=== PATIENT | male | born 1960 | race Caucasian/White ===

== ENCOUNTER 2019-09-12 07:39 | Inpatient (IN) | payer BC, OTHER ==
[~2019-09-12] VITALS: Ht 177.8 cm; Wt 91.2 kg
[2019-09-12] MEDS ORDERED: ONDANSETRON HCL/PF 4 MG/2 ML VIAL ONE (08:00)
[2019-09-12] MEDS ORDERED: MORPHINE SULFATE INJ 4 MG/ML DISP.SYRIN ONE (08:00)
[2019-09-12] MEDS ORDERED: IV NS 0.9% 1,000 ML BAG IV ONE (08:00)
[2019-09-12] MEDS ORDERED: MORPHINE SULFATE INJ 2 MG/ML DISP.SYRIN IV ONE (08:00)
[2019-09-12] MEDS ORDERED: ONDANSETRON HCL/PF 4 MG/2 ML VIAL IVP ONE (08:00)
--- NOTE | 2019-09-12 08:16 | NUR ---
Patient alert, awake, oriented x4, complaining of abdominal pain, nausea, no vomiting, heplock obtained and blood sent to lab. Patient made aware of plan of care.
[2019-09-12 08:19] LABS: EOSINOPHILS % (AUTO) 2.3 % (0.0-6.0); HEMATOCRIT 40 % (39-51); HEMOGLOBIN 13.8 g/dL (13.5-17.5); LYMPHOCYTES # (AUTO) 0.3 /CMM (0.8-4.8); LYMPHOCYTES % (AUTO) 3.9 % (20.0-44.0); MEAN CORPUSCULAR HGB CONC 34 g/dl (31.0-36.0); MEAN CORPUSCULAR VOLUME 86 fL (80-96); MONOCYTES # (AUTO) 0.3 /CMM (0.1-1.30); MONOCYTES % (AUTO) 4.3 % (2.0-12.0); NEUTROPHILS # (AUTO) 6.5 /CMM (1.8-8.9); NEUTROPHILS % (AUTO) 89.5 % (43.0-81.0); PLATELET COUNT (AUTO) 186 /CMM (150-450); RED BLOOD CELL COUNT(AUTO) 4.72 MIL/uL (4.5-6.0); WHITE BLOOD COUNT (AUTO) 7.3 K/uL (4.3-11.0)
[2019-09-12 08:24] LABS: CALCIUM, SERUM 8.9 mg/dL (8.5-10.1); CREATININE 1.6 mg/dL (0.6-1.3); POTASSIUM 3.3 mmol/L (3.5-5.1)
[2019-09-12 08:29] LABS: ALBUMIN 2.9 g/dL (3.4-5.0); BILIRUBIN,DIRECT 1.8 mg/dL (0.0-0.2); TOTAL PROTEIN, SERUM 6.6 g/dL (6.4-8.2)
[2019-09-12] MEDS ORDERED: IOHEXOL-300 100 ML VIAL IV ONE (08:38)
[2019-09-12] MEDS ORDERED: CT SWABBABLE VALVE TRANS SET 1 EA INFUS.SET MC ONE (08:38)
[2019-09-12] MEDS ORDERED: IV NS 0.9% 250 ML IV ONE (08:40)
[2019-09-12] MEDS ORDERED: FLAGYL/NS RTU 500 MG/100 ML PIGGYBACK IV ONE (09:00)
[2019-09-12] MEDS: CIPROFLOXACIN IV RTU 400 MG in PREMIX 1 EA IV SCH ×2 (09:00→10:27)
--- NOTE | 2019-09-12 09:07 | NUR ---
CALLED NURSING SUP FOR M/S BED.
[2019-09-12] MEDS ORDERED: METRONIDAZOLE 500MG/ NS 100ML 100 ML IV ONE (09:10)
[2019-09-12] MEDS ORDERED: CIPROFLOXACIN IV RTU 200 ML IV ONE (09:10)
--- NOTE | 2019-09-12 09:19 | NUR ---
PAGED [facility].
--- NOTE | 2019-09-12 09:24 | NUR ---
CALLED DR. POLO (SURGERY ON-CALL), TRANSFERRED CALL TO DR. VEGA.
--- NOTE | 2019-09-12 09:29 | NUR ---
Patient awake alert signed consent for surgery Laparoscopic appendectomy possible open per Dr. Fields done patients signed
--- NOTE | 2019-09-12 10:02 | NUR ---
NURSING SUP GAVE M/S BED 119-1.
--- NOTE | 2019-09-12 10:25 | NUR ---
emg technician @ bedside for lab drw type and screen
--- NOTE | 2019-09-12 10:25 | NUR ---
Per CN Gener OR no time avail @ this time will follow up /,ok to give report to 119-1 RN spoke to Armando made aware plan
[2019-09-12] MEDS ORDERED: POTASSIUM CHLORIDE 10 MEQ/50 ML PREMIXED IVPB FOR PERIPHERAL LINE IV ONE ×2 (10:30→13:00)
[2019-09-12] MEDS ORDERED: HYDROMORPHONE INJ 0.5 MG/0.5 ML SYRINGE IV PRN (10:30)
[2019-09-12] MEDS ORDERED: Potassium Chloride 20 MEQ in IV D5/ 0.9% NACL 1,000 ML IV PRN (10:30)
[2019-09-12] MEDS ORDERED: ACETAMINOPHEN 325 MG TABLET PO PRN (10:30)
[2019-09-12] MEDS ORDERED: ONDANSETRON HCL/PF 4 MG/2 ML VIAL IV PRN (10:30)
[2019-09-12] MEDS ORDERED: HYDROCODONE/APAP 5/325MG 1 EACH TABLET PO PRN (10:30)
--- NOTE | 2019-09-12 11:18 | NUR ---
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 PATIENT WAS ABLE TO AMBULATE FROM GURNEY TO BED. C/O PAIN TO ABDOMEN, BUT TOLERABLE. AT BEDSIDE. CALL LIGHT WITHIN REACH. PT AWARE IS NPO. IV RT AC 20 GUAGE. A/O X 4, ON ROOM AIR, NO C/O SOB. WAITING FOR SURGERY FROM OR.
[2019-09-12] MEDS ORDERED: HYDROMORPHONE 1 MG/1 ML DISP.SYRIN IV PRN (11:30)
[2019-09-12] MEDS ORDERED: Potassium Chloride 10 MEQ in IV D5W 50 ML IV ONE (11:30)
[2019-09-12 12:00] VITALS: BP 134/79
[2019-09-12] MEDS ORDERED: PIPERACILLIN /TAZOBACTAM 3.375 G in IV D5W 50 ML IV ONE (12:00)
--- NOTE | 2019-09-12 12:00 | NUR ---
RN NOTE CALLED OR, PATIENT'S SX IS SCHEDULED AT 1700. ALL CONSENT FORMS SIGNED BY THE PATIENT
[2019-09-12] MEDS ORDERED: POTASSIUM CL. PREMIX PERIPHER. 50 ML IV SCH (13:04)
[2019-09-12] MEDS ORDERED: Potassium Chloride 10 MEQ in IV D5W 50 ML IV SCH (13:30)
[2019-09-12] MEDS ORDERED: BUPIVACAINE 0.5 % PF 150 MG/30 ML VIAL ONE (15:08)
[2019-09-12 16:00] VITALS: BP_SYST 139; BP_DIAS 71; BP_DIAS 79
[2019-09-12 16:02] LABS: APPEARANCE,URINE CLEAR (CLEAR); BILIRUBIN,URINE SMALL (NEGATIVE); BLOOD, URINE TRACE-INTA Ery/uL (NEGATIVE); COLOR,URINE AMBER (YELLOW); KETONES,URINE NEGATIVE (NEGATIVE); LEUKOCYTE ESTERASE ,URINE NEGATIVE (NEGATIVE); NITRITE, URINE NEGATIVE (NEGATIVE); PH,URINE 6.5 (5.0-8.0); PROTEIN,URINE TRACE mg/dl (NEGATIVE); UGLUCOSE NEGATIVE (NEGATIVE)
[2019-09-12 16:29] LABS: WBC,URINE 0-2 /HPF (0-3)
[2019-09-12 16:30] LABS: BACTERIA,URINE None seen /HPF (None Seen); SQUAMOUS EPITHELIAL CELL,UR Rare /HPF (None Seen); URINE AMORPHOUS URATE Few /HPF (None Seen)
--- NOTE | 2019-09-12 16:32 | NUR ---
RN NOTE OR NURSES AT BEDSIDE
[2019-09-12] MEDS ORDERED: HYDROMORPHONE INJ 2 MG/ML DISP.SYRIN ONE (16:46)
[2019-09-12] MEDS ORDERED: ROCURONIUM BROMIDE 50 MG/5 ML ONE (16:46)
[2019-09-12] MEDS ORDERED: MIDAZOLAM HCL 2 MG/2ML VIAL ONE (16:46)
[2019-09-12] MEDS ORDERED: PIPERACILLIN /TAZOBACTAM 3.375 G in IV D5W 100 ML IV SCH (18:00)
[2019-09-12] MEDS ORDERED: ENOXAPARIN SODIUM 40 MG/0.4 ML DISP.SYRIN SQ SCH (18:00)
--- NOTE | 2019-09-12 18:58 | NUR ---
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
[2019-09-12] MEDS ORDERED: ONDANSETRON HCL/PF 4 MG/2 ML VIAL IVP PRN (19:00)
--- NOTE | 2019-09-12 19:15 | NUR ---
RN NOTES PATIENT ARRIVED FROM SURGERY AT 1910. VITAL SIGNS UPON ARRIVAL 137/81, 97% O2, 18 RR, 94 HR, TEMP 97.8 F. NOTED WITH MORENO DRAIN. ON O2 2LPM VIA NASAL CANNULA. NO ACUTE DISTRESS NOTED. AT BED SIDE. SAFETY PRECAUTIONS IMPLEMENTED; CALL LIGHT WITHIN REACH, BED LOW, BED LOCKED, BILATERAL UPPER SIDE RAILS UP. WILL CONTINUE TO MONITOR.
[2019-09-12] MEDS: METOCLOPRAMIDE HCL 10 MG/2 ML VIAL IV SCH (19:48)
[2019-09-12 20:00] VITALS: BP 125/77
[2019-09-12] MEDS: ANCEF 1 GM/50 ML D5W IV SCH ×2 (20:15)
[2019-09-12] MEDS: METRONIDAZOLE 500MG/ NS 100ML 500 MG in PREMIX 1 EA IV SCH (21:11)
[2019-09-12] MEDS: IV D5/0.45 NACL W/20 MEQ KCL 1L IV PRN ×2 (21:12)
--- NOTE | 2019-09-12 22:37 | NUR ---
RN NOTES MORENO DRAIN OUTPUT 100 ML. SANGUINOUS DRAINAGE AT THIS TIME.
[2019-09-13] MEDS: METOCLOPRAMIDE HCL 10 MG/2 ML VIAL IV SCH ×4 (00:21→18:34)
[2019-09-13 04:00] VITALS: BP 132/84
[2019-09-13] MEDS: MORPHINE SULFATE INJ 4 MG/ML DISP.SYRIN IV PRN ×3 (04:07→18:34)
--- NOTE | 2019-09-13 04:07 | NUR ---
RN Notes Patient complains of 9/10 pain on the abdominal incision site, Morphine 4 mg given IVP. Will continue to monitor.
[2019-09-13] MEDS: ANCEF 1 GM/50 ML D5W IV SCH ×2 (04:57)
[2019-09-13] MEDS: METRONIDAZOLE 500MG/ NS 100ML 500 MG in PREMIX 1 EA IV SCH (05:27)
--- NOTE | 2019-09-13 06:55 | NUR ---
RN CLOSING NOTES PATIENT IS CURRENTLY ASLEEP, EASILY AWAKENED. NO SIGNS OF RESPIRATORY DISTRESS, NO SHORTNESS OF BREATH NOTED, RESPIRATIONS EVEN AND UNLABORED. NO SIGNS OF FACIAL GRIMACING INDICATING PAIN OR DISCOMFORT AT THIS TIME. IV SITE TO LAC INTACT AND PATENT, NO SIGNS OF INFECTION/INFILTRATION, FLUSHED. INCISION SITE INTACT WITH MORENO DRAIN, FLOWING WELL. PATIENT KEPT CLEAN, DRY AND COMFORTABLE. ALL NEEDS MET ON SHIFT. ALL DUE MEDS GIVEN ORDERED WITH NO ADVERSE EFFECTS. SAFETY PRECAUTIONS IMPLEMENTED; CALL LIGHT WITHIN REACH, BED LOW, BED LOCKED, BILATERAL UPPER SIDE RAILS UP. WILL ENDORSE TO DAY SHIFT NURSE FOR CONTINUITY OF CARE.
[2019-09-13 07:15] LABS: BASOPHILS % (AUTO) 0.1 % (0.0-2.0); HEMATOCRIT 34 % (39-51); HEMOGLOBIN 11.6 g/dL (13.5-17.5); LYMPHOCYTES # (AUTO) 0.1 /CMM (0.8-4.8); LYMPHOCYTES % (AUTO) 1.7 % (20.0-44.0); MEAN CORPUSCULAR HGB CONC 34 g/dl (31.0-36.0); MEAN CORPUSCULAR VOLUME 85 fL (80-96); MONOCYTES # (AUTO) 0.5 /CMM (0.1-1.30); MONOCYTES % (AUTO) 6.3 % (2.0-12.0); NEUTROPHILS # (AUTO) 7.1 /CMM (1.8-8.9); NEUTROPHILS % (AUTO) 91.9 % (43.0-81.0); PLATELET COUNT (AUTO) 175 /CMM (150-450); RED BLOOD CELL COUNT(AUTO) 3.97 MIL/uL (4.5-6.0); WHITE BLOOD COUNT (AUTO) 7.7 K/uL (4.3-11.0)
[2019-09-13 07:29] LABS: CALCIUM, SERUM 8.4 mg/dL (8.5-10.1); CREATININE 1.4 mg/dL (0.6-1.3); MAGNESIUM 2.1 mg/dL (1.8-2.4); POTASSIUM 3.6 mmol/L (3.5-5.1)
[2019-09-13] MEDS: PIPERACILLIN /TAZOBACTAM 3.375 G in IV D5W 50 ML IV SCH ×2 (12:53→17:39)
[2019-09-13] MEDS: IV D5/0.45 NACL W/20 MEQ KCL 1L IV PRN ×2 (15:01)
[2019-09-13 16:00] VITALS: BP 144/92
--- NOTE | 2019-09-13 16:49 | NUR ---
Patient is alert and oriented, lives locally with .He is ambulatory and independent with adl's. Has good family support. Pcp is Dtr. Iker Galarza. He plan to return home, family will provide ride. Addendum: 09/13/19 at 1650 by JUAN CARLOS GILLESPIE RN Amended: Links added.
[2019-09-13] MEDS: ENOXAPARIN SODIUM 40 MG/0.4 ML DISP.SYRIN SQ SCH (17:45)
--- NOTE | 2019-09-13 19:05 | NUR ---
RN OPENING NOTES: RECEIVED PATIENT IN BED, A/O X4. NO COMPLAIN OF PAIN. NO SOB. AT THE BEDSIDE. POST OP INCISION DRESSINGS DRY CLEAN AND INTACT. WITH MORENO ON THE LOWER ABDOMEN INTACT, DRAINING SEROSANGUINOUS AND YELLOWISH OUTPUT. MORENO BULB IS DEPRESSED. REMINDED TO DO THE IS, VERBALIZED UNDERSTANDING. CALL LIGHT WITHIN REACH. BED IN LOWEST AND LOCKED POSITION. ACCORDING TO THE REPORT PATIENT IS ALREADY PASSING GASES. ENCOURAGED PATIENT TO TURN AND CHANGE POSITIONS FREQUENTLY.
[2019-09-13 20:00] VITALS: BP 156/90
[2019-09-14] VITALS (7 sets, daily range): BP systolic 100–180; BP diastolic 74–111
[2019-09-14] MEDS: PIPERACILLIN /TAZOBACTAM 3.375 G in IV D5W 50 ML IV SCH ×5 (00:20→23:46)
[2019-09-14] MEDS: METOCLOPRAMIDE HCL 10 MG/2 ML VIAL IV SCH ×5 (00:26→23:46)
[2019-09-14] MEDS: MORPHINE SULFATE INJ 4 MG/ML DISP.SYRIN IV PRN ×4 (00:40→20:14)
[2019-09-14] MEDS ORDERED: IV PREMIX D5 1/2NS + KCL 1,000 ML IV ONE (01:10)
[2019-09-14] MEDS: IV D5/0.45 NACL W/20 MEQ KCL 1L IV PRN ×2 (02:52)
--- NOTE | 2019-09-14 04:50 | NUR ---
MZ=032/96, HR=90, INFORMED DR LEWIS, WAITING FOR THE RESPONSE, PARTHA REYNOLDS MADE AWARE.
[2019-09-14] MEDS: CLONIDINE HCL 0.1 MG TABLET PO PRN ×2 (06:43→12:51)
--- NOTE | 2019-09-14 07:30 | NUR ---
RN OPENING NOTES RECEIVED PATIENT IN BED, A/O X 4. VERBALLY RESPONSIVE AND ABLE TO MAKE NEEDS KNOWN. COMPLAINT OF PAIN ON ABDOMEN. IV ACCESS ON L AC #20, INTACT, PATENT , AND FLUSHED WELL. MORENO IN PLACE, WITH YELLOWISH COLOR DRAIN. NO SIGNS OF BLEEDING NOTED. BED ON LOWEST POSITION AND LOCKED. CALL LIGHT WITHIN REACH. WILL CONTINUE TO MONITOR .
[2019-09-14 08:01] LABS: CALCIUM, SERUM 8.3 mg/dL (8.5-10.1); CREATININE 1.3 mg/dL (0.6-1.3); MAGNESIUM 2.3 mg/dL (1.8-2.4); POTASSIUM 3.5 mmol/L (3.5-5.1)
[2019-09-14 08:22] LABS: BASOPHILS % (AUTO) 0.1 % (0.0-2.0); EOSINOPHILS % (AUTO) 0.1 % (0.0-6.0); HEMATOCRIT 39 % (39-51); HEMOGLOBIN 12.9 g/dL (13.5-17.5); LYMPHOCYTES # (AUTO) 0.3 /CMM (0.8-4.8); LYMPHOCYTES % (AUTO) 2.4 % (20.0-44.0); MEAN CORPUSCULAR HGB CONC 33 g/dl (31.0-36.0); MEAN CORPUSCULAR VOLUME 85 fL (80-96); MONOCYTES # (AUTO) 0.9 /CMM (0.1-1.30); MONOCYTES % (AUTO) 7.4 % (2.0-12.0); NEUTROPHILS # (AUTO) 10.8 /CMM (1.8-8.9); PLATELET COUNT (AUTO) 248 /CMM (150-450); RED BLOOD CELL COUNT(AUTO) 4.57 MIL/uL (4.5-6.0)
--- NOTE | 2019-09-14 12:53 | NUR ---
RN MS NOTES NOTIFIED DR WEBER ABOUT THE ELEVATED BP OF PATIENT 182/108 AFTER CLONIDINE ADMINISTERED BP WAS 175/110. MD ORDERED TO GIVE NORVASC 5MG NOW AND GIVE DAILY .
[2019-09-14] MEDS ORDERED: AMLODIPINE BESYLATE 5 MG TABLET PO ONE (13:30)
--- NOTE | 2019-09-14 15:44 | NUR ---
RN NOTES NOTIFIED DR WEBER ABOUT THE BLOOD PRESSURE OF THE PATIENT THAT IS STILL HIGH EVEN AFTER CLONIDINE AND NORVASC. MD ORDERED NEW MEDICINE. TO GIVE XANAX 0.5 MG Q6HR PRN . OFFERED PT IF HE WANTED TO HAVE IT. PER PT, "NOT AT THE MOMENT ".
[2019-09-14] MEDS ORDERED: ALPRAZOLAM 0.25 MG TABLET PO PRN (17:30)
--- NOTE | 2019-09-14 19:30 | NUR ---
MS RN OPENING NOTE RECEIVED PATIENT IN BED. A/OX4. CURRENTLY TOLERATING ROOM AIR. RESPIRATIONS ARE EVEN AND UNLABORED NO S/S SOB NOTED. STATES HE IS IN PAIN, INFORMED WILL GIVE PAIN MEDICATION ONCE RECEIVED REPORT FOR ALL PATIENTS. IN NO APPARENT DISTRESS. IV ACCESS IN LAC CURRENTLY RUNNING K20MEQ 1/2 NS @100MLHR. MORENO DRAIN IS PRESENT, COVERED WITH DRESSING, DRAINING TO BULB SUCTION, OUTPUT IS SEROUS. BED IS LOW AND LOCKED, HOB ELEVATED IN HIGH FOWLERS, SIDE RIALS UP 2, BED ALARM ON, SCD ON. CALL LIGHT WITHIN REACH. WILL CONTINUE TO MONITOR.
--- NOTE | 2019-09-14 19:52 | NUR ---
RN CLOSING NOTES PATIENT IN BED , ASLEEP. IN NO ACUTE DISTRESS NOTED. ABDOMINAL INCISION DRESSING INTACT, NO BLEEDING NOTED. MORENO DRAINED AND INTACT. ALL NEEDS MET. ENDORSED TO PM RN FOR CONTINUITY OF CARE.
[2019-09-14] MEDS: ENOXAPARIN SODIUM 40 MG/0.4 ML DISP.SYRIN SQ SCH (20:09)
--- NOTE | 2019-09-14 20:30 | NUR ---
MS RN NOTE ADMINISTERED PRN MORPHINE 4MG FOR PAIN 8/10 IN ABDOMINAL INCISION SITE. WILL CONTINUE TO MONITOR.
[2019-09-15] MEDS: PIPERACILLIN /TAZOBACTAM 3.375 G in IV D5W 50 ML IV SCH ×4 (05:09→23:11)
[2019-09-15] MEDS: MORPHINE SULFATE INJ 4 MG/ML DISP.SYRIN IV PRN ×3 (05:43→22:07)
--- NOTE | 2019-09-15 05:43 | NUR ---
MS RN NOTE ADMINISTERED PRN MORPHINE 4 MG FOR PAIN 8/10 AT ABDOMINAL INCISION SITE. WILL CONTINUE TO MONITOR.
--- NOTE | 2019-09-15 06:17 | NUR ---
MS RN CLOSING NOTE PATIENT IN BED. A/OX4. TOLERATING ROOM AIR. RESPIRATIONS ARE EVEN AND UNLABORED NO SOB NOTED. MANAGED PAIN WITH 4MG MORPHINE THROUGHOUT SHIFT. NO DISTRESS NOTED. IV ACCESS MAINTAINED IN LAC RUNNING K20MEQ 1/2 NS @100MLHR. MORENO DRAIN IS MAINTAINED, DRAINING TO BULB SUCTION, OUTPUT IS SEROUS 110ML NOTED. BED IS LOW AND LOCKED, HOB ELEVATED IN SEMI FOWLERS, SIDE RIALS UP 2, BED ALARM ON, SCD ON. CALL LIGHT WITHIN REACH. WILL ENDORSE TO NEXT SHIFT.
[2019-09-15 06:59] LABS: BASOPHILS % (AUTO) 0.2 % (0.0-2.0); EOSINOPHILS % (AUTO) 2.6 % (0.0-6.0); HEMATOCRIT 37 % (39-51); HEMOGLOBIN 12.2 g/dL (13.5-17.5); LYMPHOCYTES # (AUTO) 0.5 /CMM (0.8-4.8); LYMPHOCYTES % (AUTO) 5.5 % (20.0-44.0); MEAN CORPUSCULAR HGB CONC 33 g/dl (31.0-36.0); MEAN CORPUSCULAR VOLUME 86 fL (80-96); MONOCYTES % (AUTO) 10.3 % (2.0-12.0); NEUTROPHILS # (AUTO) 7.9 /CMM (1.8-8.9); NEUTROPHILS % (AUTO) 81.4 % (43.0-81.0); PLATELET COUNT (AUTO) 249 /CMM (150-450); RED BLOOD CELL COUNT(AUTO) 4.26 MIL/uL (4.5-6.0); WHITE BLOOD COUNT (AUTO) 9.7 K/uL (4.3-11.0)
[2019-09-15 07:18] LABS: CALCIUM, SERUM 7.6 mg/dL (8.5-10.1); POTASSIUM 3.3 mmol/L (3.5-5.1)
[2019-09-15] MEDS: METOCLOPRAMIDE HCL 10 MG/2 ML VIAL IV SCH ×3 (07:32→18:31)
--- NOTE | 2019-09-15 07:49 | NUR ---
RN OPENING NOTES RECEIVED PATIENT IN BED, AWAKE. A/O X4 . VERBALLY RESPONSIVE. DENIES PAIN AT THE MOMENT. IN ROOM AIR AND TOLERATING WELL. NO SOB NOTED. IV ACCESS ON L AC #20, INTACT, PATENT AND FLUSHED WELL. ABDOMINAL DRESSING INTACT NO SIGNS OF BLEEDING. MORENO IN PLACED. DISCUSSED PLAN OF CARE WITH PATIENT FOR TODAY. VERBALIZED UNDERSTANDING. BED ON LOW POSITION AND LOCKED. CALL LIGHT WITHIN REACH. WILL CONTINUE TO MONITOR .
[2019-09-15 08:00] VITALS: BP 139/83
[2019-09-15] MEDS ORDERED: AMLODIPINE BESYLATE 5 MG TABLET PO SCH (09:00)
[2019-09-15] MEDS ORDERED: POTASSIUM CHLORIDE 20 MEQ TAB.PRT.SR PO SCH (09:30)
[2019-09-15 16:00] VITALS: BP 165/91
--- NOTE | 2019-09-15 19:03 | NUR ---
RN CLOSING NOTE PATIENT IN BED. A/OX4. TOLERATING ROOM AIR. NO SOB NOTED. IN NO ACUTE DISTRESS. IV ACCESS MAINTAINED IN L FOREARM RUNNING K20MEQ 1/2 NS @100MLHR. MORENO DRAIN IS MAINTAINED, DRAINING TO BULB SUCTION. BED IS LOW AND LOCKED, HOB ELEVATED IN SEMI FOWLERS, SIDE RIALS UP 2, BED ALARM ON, SCD ON. CALL LIGHT WITHIN REACH. WILL ENDORSE TO NEXT SHIFT. Addendum: 09/15/19 at 1905 by DIANA NICOLE RN MORENO OUTPUT 310 ML
[2019-09-15 20:00] VITALS: BP 157/89
[2019-09-15] MEDS: ENOXAPARIN SODIUM 40 MG/0.4 ML DISP.SYRIN SQ SCH (21:51)
[2019-09-16] MEDS: METOCLOPRAMIDE HCL 10 MG/2 ML VIAL IV SCH ×4 (00:36→19:55)
[2019-09-16 04:00] VITALS: BP 157/89
[2019-09-16] MEDS: PIPERACILLIN /TAZOBACTAM 3.375 G in IV D5W 50 ML IV SCH ×3 (05:25→17:24)
[2019-09-16] MEDS: MORPHINE SULFATE INJ 4 MG/ML DISP.SYRIN IV PRN (06:02)
[2019-09-16 07:47] LABS: BASOPHILS % (AUTO) 0.2 % (0.0-2.0); EOSINOPHILS % (AUTO) 2.4 % (0.0-6.0); HEMATOCRIT 38 % (39-51); HEMOGLOBIN 12.4 g/dL (13.5-17.5); LYMPHOCYTES # (AUTO) 0.4 /CMM (0.8-4.8); LYMPHOCYTES % (AUTO) 4.4 % (20.0-44.0); MEAN CORPUSCULAR HGB CONC 33 g/dl (31.0-36.0); MEAN CORPUSCULAR VOLUME 86 fL (80-96); MONOCYTES # (AUTO) 1.2 /CMM (0.1-1.30); MONOCYTES % (AUTO) 11.7 % (2.0-12.0); NEUTROPHILS # (AUTO) 8.3 /CMM (1.8-8.9); NEUTROPHILS % (AUTO) 81.3 % (43.0-81.0); PLATELET COUNT (AUTO) 271 /CMM (150-450); RED BLOOD CELL COUNT(AUTO) 4.39 MIL/uL (4.5-6.0); WHITE BLOOD COUNT (AUTO) 10.2 K/uL (4.3-11.0)
[2019-09-16 08:00] VITALS: BP 149/90
[2019-09-16 08:01] LABS: CALCIUM, SERUM 7.7 mg/dL (8.5-10.1); CREATININE 0.9 mg/dL (0.6-1.3); MAGNESIUM 1.8 mg/dL (1.8-2.4); POTASSIUM 3.2 mmol/L (3.5-5.1)
[2019-09-16] MEDS ORDERED: POTASSIUM CHLORIDE 20 MEQ TAB.PRT.SR PO ONE (08:30)
[2019-09-16] MEDS: AMLODIPINE BESYLATE 5 MG TABLET PO SCH (08:51)
--- NOTE | 2019-09-16 09:12 | NUR ---
SOME DISCOMFORT, BUT NOT PAIN, HE SAID. HORIZONTAL INCISION, ON LLQ OF ABDOMEN, VENITA SHAHBAZ, INTACT. REPLACED WITH 40MEQ K, PO TODAY
[2019-09-16 10:45] LABS: BAND % (MANUAL) 2 % (0.0-5.0); EOSINOPHILS % (MANUAL) 1 % (0-4); LYMPHOCYTES % (MANUAL) 5 % (16-48); METAMYELOCYTES % 2 % (0-0); MONOCYTES % (MANUAL) 11 % (0-11.0); MYELOCYTES % 3 % (0-0); NEUTROPHILS % (MANUAL) 76 (42-76)
--- NOTE | 2019-09-16 10:58 | NUR ---
Until now, no bm," passed gas, he said". Seen by surgeon, ivf decreased to 50cc per hour, and will start on FULL LIQUID for lunch. Motivated enough, out of bed, and walked with one of the staff , in the hallway
[2019-09-16 12:00] VITALS: BP 149/90
[2019-09-16] MEDS: CLONIDINE HCL 0.1 MG TABLET PO PRN (15:49)
[2019-09-16 16:00] VITALS: BP 160/88
--- NOTE | 2019-09-16 16:01 | NUR ---
again out of bed, and walked with staff. No further c/o of pain, had " ONE NORMAL BM after 4 days of surgery, he said.
--- NOTE | 2019-09-16 18:30 | NUR ---
MS RN NOTES PATIENT IN BED, AWAKE, ALERT AND ORIENTED X 4. BREATHING EVEN AND UNLABORED ON ROOM AIR. SHOWS NO SIGNS OF ACUTE RESPIRATORY DISTRESS, NO ACUTE PAIN. IV ON LAC #20 RUNNING 1/2 NS KCL 20MEQ AT 50ML/HR. SHOWS NO REDNESS, NO INFILTRATION, CLEAN DRY AND INTACT. SAFETY PRECAUTIONS IN PLACE. BED IN LOWEST POSITION, LOCKED, AND CALL LIGHT KEPT WITHIN REACH. WILL CONTINUE TO MONITOR.
[2019-09-16 20:00] VITALS: BP 142/84
--- NOTE | 2019-09-16 20:42 | NUR ---
MS RN NOTES REPORT GIVEN TO JELENA FOR GINA.
[2019-09-16 20:55] VITALS: BP 142/84
[2019-09-16] MEDS: ENOXAPARIN SODIUM 40 MG/0.4 ML DISP.SYRIN SQ SCH (21:23)
--- NOTE | 2019-09-16 21:44 | NUR ---
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 CLOTHING PATTERNMAKER PAGED. WILL F/U
--- NOTE | 2019-09-16 23:57 | NUR ---
SHIP ENGINEER NOTE SPOKE TO DR. LEWIS RECEIVED ORDER FOR PRN MED ROSTERIL 15MG. MEDICATION ORDERED.
[2019-09-17] MEDS ORDERED: TEMAZEPAM 15 MG CAPSULE PO PRN
[2019-09-17] MEDS: PIPERACILLIN /TAZOBACTAM 3.375 G in IV D5W 50 ML IV SCH ×2 (00:21→05:16)
[2019-09-17] MEDS: METOCLOPRAMIDE HCL 10 MG/2 ML VIAL IV SCH ×2 (00:22→05:40)
[2019-09-17 05:50] VITALS: BP 139/79
--- NOTE | 2019-09-17 07:00 | NUR ---
REGISTERED PHYSICAL THERAPIST CLOSING NOTE PT AWAKE IN BED, NO C/O PAIN. IV SITE PATENT AND INTACT TO LEFT HAND, NO S/S OF RESP DISTRESS. ENDORSED TO AM NURSE FOR GINA
[2019-09-17 07:44] LABS: POTASSIUM 3.2 mmol/L (3.5-5.1)
--- NOTE | 2019-09-17 07:49 | NUR ---
MS RN NOTES RECEIVED PATIENT IN BED RESTING COMFORTABLY IN MODERATE HIGH BACK REST. ALERT AND ORIENTED X 4. NO SIGNS OF DISTRESS NOTED AT THIS TIME. IV ON LAC #20 RUNNING 1/2 NS KCL 20MEQ AT 100ML/HR. SHOWS NO REDNESS, NO INFILTRATION, CLEAN DRY AND INTACT. SAFETY PRECAUTIONS IN PLACE. BED IN LOWEST POSITION, LOCKED, AND CALL LIGHT KEPT WITHIN REACH. WILL CONTINUE TO MONITOR.
[2019-09-17 08:00] VITALS: BP 160/87
[2019-09-17 08:21] VITALS: BP 160/87
[2019-09-17] MEDS: AMLODIPINE BESYLATE 5 MG TABLET PO SCH (08:21)
[2019-09-17] MEDS ORDERED: HYDR-3972 PO (09:28)
[2019-09-17] MEDS ORDERED: AMLO5TAB9 PO (09:29)
[2019-09-17] MEDS ORDERED: METR500T PO (09:29)
[2019-09-17] MEDS ORDERED: LEVO500T75 PO (09:29)
--- NOTE | 2019-09-17 11:55 | NUR ---
BALLET PROFESSOR NOTES PATIENT DISCHARGED IN STABLE CONDITION. A/O X4. ABLE TO MAKE NEEDS KNOWN. V/S TAKEN, STABLE AND RECORDED. PATIENTS IV REMOVED AND APPLIED PRESSURE DRESSINGS. DR. POLO REMOVED J/P DRAINAGE EARLIER, APPLIED 4X4 GAUZE, PICTURES FILED ON CHART. NAME ARM BAND REMOVED. ALL BELONGINGS CHECKED AND SIGNED. HEALTH TEACHINGS/DISCHARGE INSTRUCTIONS GIVEN TO PATIENT AND VERBALIZED UNDERSTANDING. PRESCRIPTION FOR MEDICATIONS GIVEN TO PATIENT. PATIENT LEFT UNIT VIA WHEELCHAIR WITH AND HOSPITAL STAFF. NO SIGNS OF DISTRESS NOTED. CHARGE NURSE AWARE OF DISCHARGED.
== END 2019-09-17 11:00 | disposition home or self-care (01) | DRG 330 ==
LOC: ER 07:39 → MEDSG1 10:10
PROVIDERS: ADMIT Internal Medicine; ATTEND Internal Medicine
DX: K35.20 Acute appendicitis with generalized peritonitis, without abscess (principal); N17.9 Acute kidney failure, unspecified; K56.7 Ileus, unspecified; E86.0 Dehydration; E87.6 Hypokalemia; I10 Essential (primary) hypertension
CPT/HCPCS: 36415; 80048-TC; 80076-TC; 81000-TC; 83690-TC; 83735-TC; 85025-TC; 86850-TC; 87040-TC; 87070-TC; 87081-TC; 87186-TC; 88307-TC; 97116-TC; 97530-TC; A4216; A6403; G0378; J0330; J0690; J0744; J1100; J1170; J1650; J1885; J2250; J2270; J2405; J2543; J2704; J2710; J2765; J3480; J3490; J7030; J7042; J7050; J7060; Q9967

== ENCOUNTER 2025-01-22 12:41 | Emergency (ER) | payer BC, OTHER ==
[~2025-01-22] VITALS: Ht 172.7 cm; Wt 81.6 kg
[~2025-01-22 12:41] MED LIST: AMLO-212 PO; HYDR-3972 PO; LEVO500T23 PO; METR500T PO
[2025-01-22 12:51] VITALS: TEMP 97.9
[2025-01-22] MEDS ORDERED: AMLO5TAB4 PO (13:51)
[2025-01-22] MEDS ORDERED: AMLODIPINE BESYLATE 5 MG TABLET ONE (14:03)
[2025-01-22 14:06] VITALS: BP 196/110
[2025-01-22] MEDS: AMLODIPINE BESYLATE 5 MG TABLET PO ONE (14:06)
[2025-01-22 14:15] VITALS: O2SAT 96
== END 2025-01-22 14:16 | disposition home or self-care (01) ==
LOC: ER 12:48
DX: I10 Essential (primary) hypertension (principal); Z79.899 Other long term (current) drug therapy